=== PATIENT | female | born 1985 | race Caucasian/White ===

== ENCOUNTER 2017-12-01 09:55 | Observation (INO) | payer OTHER ==
[2017-12-01] MEDS: SOD CHLORIDE 0.9% 1,000 ML IV (06:00)
[2017-12-01] MEDS: CEFAZOLIN 2 GM/50 ML (PMX) 50 ML IVPB (06:00)
[~2017-12-01 09:55] MED LIST: LIDOCAINE 2% (SDV) 5 ML INJ
[2017-12-01 10:57] LABS: ADD MAN DIFF? NO
[2017-12-01 10:59] LABS: WHITE BLOOD COUNT 9.5 10^3/ul (4.8-10.8)
[2017-12-01 10:59] LABS: BASOPHILS % 0.2 % (0.0-2.0); EOSINOPHILS # 0.2 10^3/ul (0.0-0.5); EOSINOPHILS % 1.6 % (0.0-7.0); HEMATOCRIT 38.3 % (37.0-47.0); HEMOGLOBIN 12.9 g/dl (12.0-16.0); LYMPHOCYTES # 2.4 10^3/ul (0.8-2.9); LYMPHOCYTES % 25.3 % (15.0-51.0); MEAN CORPUSCULAR HEMOGLOBIN 27.6 pg (29.0-33.0); MEAN CORPUSCULAR HGB CONC 33.7 g/dl (32.0-37.0); MEAN PLATELET VOLUME 10.3 fl (7.4-10.4); MONOCYTE # 0.5 10^3/ul (0.3-0.9); MONOCYTES % 5.7 % (0.0-11.0); NEUTROPHIL # 6.3 10^3/ul (1.6-7.5); PLATELET COUNT 227 10^3/UL (140-415); RED BLOOD COUNT 4.67 10^6/ul (4.20-5.40); RED CELL DISTRIBUTION WIDTH 13.2 % (11.5-14.5)
[2017-12-01 11:06] LABS: ALANINE AMINOTRANSFERASE 32 IU/L (13-69); ALBUMIN 3.8 g/dl (3.3-4.9); ALBUMIN/GLOBULIN RATIO 1.05; ALKALINE PHOSPHATASE 97 IU/L (42-121); ANION GAP 14 (8-16); ASPARTATE AMINO TRANSFERASE 16 IU/L (15-46); BILIRUBIN,INDIRECT 0.1 mg/dl (0-1.1); BILIRUBIN,TOTAL 0.1 mg/dl (0.2-1.3); BLOOD UREA NITROGEN 11 mg/dl (7-20); CALCIUM 9.1 mg/dl (8.4-10.2); CARBON DIOXIDE 25 mmol/L (21-31); CHLORIDE 107 mmol/L (97-110); CREATININE 0.62 mg/dl (0.44-1.00); GLUCOSE 105 mg/dl (70-220); POTASSIUM 4.1 mmol/L (3.5-5.1); SODIUM 142 mmol/L (135-144); TOTAL PROTEIN 7.4 g/dl (6.1-8.1)
[2017-12-01 12:02] LABS: PARTIAL THROMBOPLASTIN TIME 27.4 Sec (25.0-35.0); PROTIME 12.2 Sec (11.9-14.9)
[2017-12-01] MEDS ORDERED: DIPHENHYDRAMINE 50 MG INJ IV (14:30)
[2017-12-01] MEDS ORDERED: FENTAnyl 50 MCG/ML VIAL IV (14:30)
[2017-12-01] MEDS ORDERED: METOCLOPRAMIDE 10 MG INJ IV (14:30)
[2017-12-01] MEDS ORDERED: HYDROmorphONE (0.2 MG/ML) 10ML SYG IV ×2 (14:30)
[2017-12-01] MEDS ORDERED: FENTAnyl 50 MCG/ML VIAL ×2 (14:50→15:46)
[2017-12-01] MEDS ORDERED: SUGAMMADEX SODIUM 200 MG/2 ML VIAL IV (15:12)
[2017-12-01] MEDS ORDERED: SUCCINYLCHOLINE CHLORIDE 100 MG/5 ML SYG IV (15:12)
[2017-12-01] MEDS ORDERED: PROPOFOL 20 ML (15:12)
[2017-12-01] MEDS ORDERED: CEFAZOLIN 1 GM INJ (15:12)
[2017-12-01] MEDS ORDERED: ROCURONIUM 50 MG INJ (15:12)
[2017-12-01] MEDS: BUPIVACAINE 0.25% (MPF) 30 ML INJ INJ (15:20)
[2017-12-01] MEDS ORDERED: ROPIVACAINE 0.5 % 30 ML VIAL (16:07)
[2017-12-01] MEDS ORDERED: HYDROCODONE/APAP (5/325) TAB PO (16:30)
[2017-12-01] MEDS: ONDANSETRON 4 MG INJ IV ×2 (16:49→20:25)
[2017-12-01] MEDS: HYDROmorphONE (0.2 MG/ML) 10ML SYG IV (16:50)
[2017-12-01] MEDS: MEPERIDINE 25 MG INJ IV ×2 (16:51→17:01)
[2017-12-01] MEDS: FENTAnyl 50 MCG/ML VIAL IV (17:23)
[2017-12-01] MEDS ORDERED: morphine 2 MG INJ IV (19:00)
[2017-12-01] MEDS: morphine 2 MG INJ IV (20:25)
[2017-12-01] MEDS: HYDROCODONE/APAP (5/325) TAB PO (23:03)
[2017-12-02] MEDS: morphine 2 MG INJ IV (05:56)
[2017-12-02] MEDS: HYDROCODONE/APAP (5/325) TAB PO ×2 (10:24→14:49)
== END 2017-12-02 17:30 | disposition home or self-care (01) ==
LOC: SDS 09:55 → REC 18:37 → MS1 20:05
DX: K80.10 Calculus of gallbladder with chronic cholecystitis without obstruction (principal); K75.81 Nonalcoholic steatohepatitis (NASH); E78.5 Hyperlipidemia, unspecified; E66.01 Morbid (severe) obesity due to excess calories; Z68.41 Body mass index [BMI] 40.0-44.9, adult
CPT/HCPCS: 47379; 80053; 85025; 85610; 85730; 88304; 88307; 88313; 99217